=== PATIENT | female | born 1975 | race Caucasian/White ===

== ENCOUNTER 2021-11-21 21:45 | Emergency (ER) | payer SELFPAY ==
[~2021-11-21] VITALS: Ht 149.9 cm; Wt 49.9 kg
[2021-11-21 21:49] VITALS: BP 109/70
[2021-11-21] MEDS ORDERED: HYD2.5O TP (23:39)
[2021-11-21] MEDS ORDERED: LORA10TA19 PO (23:39)
[2021-11-22 00:12] VITALS: BP 112/74
== END 2021-11-22 00:13 | disposition home or self-care (01) ==
LOC: MED 21:45
DX: R21 Rash and other nonspecific skin eruption (principal); F15.90 Other stimulant use, unspecified, uncomplicated; Z98.51 Tubal ligation status; Z88.0 Allergy status to penicillin; Z91.010 Allergy to peanuts
CPT/HCPCS: 99282